=== PATIENT | female | born 1960 | race Caucasian/White ===

== ENCOUNTER 2018-04-14 04:32 | Inpatient (IN) | payer OTHER ==
[~2018-04-14] VITALS: Ht 172.7 cm; Wt 77.2 kg
[~2018-04-14 04:32] MED LIST: NORVASC 10MG10 MG PO
--- NOTE | 2018-04-14 04:57 | ED GI/GU/ABDOMINAL COMPLAINT ---
History of Present Illness General Chief Complaint: Abdominal Pain/Flank Pain Stated Complaint: ABD PAIN Source: patient Exam Limitations: no limitations Vital Signs & Intake/Output Vital Signs & Intake/Output Vital Signs Date Time Temp Pulse Resp B/P B/P Pulse O2 O2 Flow FiO2 Mean Ox Delivery Rate 04/14 0627 74 18 108/74 100 Nasal 2.0L Cannula 04/14 0602 68 18 94/57 100 Nasal 2.0L Cannula 04/14 0547 65 18 86/56 100 Nasal 2.0L Cannula 04/14 0520 64 18 81/53 94 Room Air 04/14 0503 97 Room Air 04/14 0440 96.8 134 20 73/50 97 Room Air Allergies Coded Allergies: NO KNOWN ALLERGIES (04/07/14) Triage Note: PT TO ED 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 BP 73/50 AUTO. SKIN MOIST. PT WRITHING IN WHEEL CHAIR IN TRIAGE. JUST FINISHED MEDS FOR H PYLORI INFECTION Triage Nurses Notes Reviewed? yes Is pt currently ? No HPI: Ms. Hernandez is a 58 y/o F that came to the ED c/o abdominal pain. Pt states pain started this am at approximately 4.30 am; she states it is epigastric with radiation to the RUQ but also to the back. She endorses taking advils, around 25 , while also stating she has had "some drinks". Pain is severe, 8/10, with no modifying factors. On arrival, pt was hypotensive <90/60, drowsy but arousable, answering questions. She is being fluid resuscitated while workup is ongoing including: acetaminophen level, Urinary Tox, CMP, lipase, CT abdomen and pelvis, ETOH level. (Augie Kohler MD,Yariel) ? n (Ger Morales DO) Reconcile Medications Amlodipine Besylate 5 MG TABLET 1 TAB PO DAILY HEART (Reported) Losartan/Hydrochlorothiazide (Losartan-Hctz 100-25 MG Tab) 100 MG-25 MG TABLET 1 TAB PO DAILY HEART (Reported) (Dmitryi Horan MD) Past History Travel History Traveled to [place] past 21 day No Medical History Any Pertinent Medical History? see below for history Cardiovascular: hypertension Surgical History Surgical History: unobtainable Psychosocial History What is your primary language Azeri Tobacco Use: Current Daily Use Daily Tobacco Use Amount/Type: =< 4 Cigarettes daily ETOH Use: occasional use Illicit Drug Use: denies illicit drug use Family History Hx Contributory? No (Augie Kohler MD,Yariel) Review of Systems Review of Systems Constitutional: Reports: see HPI. EENTM: Reports: no symptoms. Respiratory: Reports: no symptoms. Cardiovascular: Reports: no symptoms. GI: Reports: see HPI. Genitourinary: Reports: no symptoms. Musculoskeletal: Reports: no symptoms. Skin: Reports: no symptoms. Neurological/Psychological: Reports: no symptoms. Hematologic/Endocrine: Reports: no symptoms. Immunologic/Allergic: Reports: no symptoms. All Other Systems: Reviewed and Negative (Augie Kohler MD,Yariel) Physical Exam Physical Exam General Appearance: lethargic (though arousable), severe distress Head: atraumatic, normal appearance Neck: normal inspection, supple, full range of motion Respiratory: normal breath sounds, chest non-tender, no respiratory distress, lungs clear Cardiovascular: bradycardia Gastrointestinal: Positive bowel sounds, soft, nondistended, tenderness on palpation of RUQ and epigastric areal. No abdominal guarding, or rebound tenderness. Extremities: normal range of motion Neurologic/Psych: oriented x 3 Core Measures ACS in differential dx? No Sepsis Present: No Sepsis Focused Exam Completed? No (Augie Kohler MD,Yariel) Physical Exam Eyes: Bilateral: normal appearance, PERRL, EOMI, normal inspection. Ears, Nose, Throat, Mouth: hearing grossly normal, moist mucous membrane, dry mucous membranes Peripheral Pulses: 4+ carotid (R), 3+ carotid (L) Back: normal inspection Skin: intact (Dmitriy Horan MD) Progress Differential Diagnosis: pancreatitis, peptic ulcer, perforated viscous Plan of Care: Orders Procedure Date/time Status CBC WITHOUT DIFFERENTIAL 04/15 0600 Active BASIC ELECTROLYTES PLUS BUN&CR 04/15 0600 Active Nothing by Mouth 04/14 L Active LACTIC ACID 04/14 1400 Active LACTIC ACID 04/14 1100 Active EKG 04/14 1000 Active TRC EVALUATION (GEN) 04/14 0913 Active Pathway - chart 04/14 0913 Active House Staff 04/14 0913 Active BLOOD CULTURE 04/14 0913 Active US-LIMITED ABDOMEN 04/14 0816 Active Patient Data 04/14 0813 Active LACTIC ACID 04/14 0750 Complete OXYGEN SETUP (GEN) 04/14 0734 Active Saline Lock 04/14 0734 Active Admit to inpatient 04/14 0734 Active Vital Signs 04/14 0734 Active Activity/Ambulation 04/14 0734 Active Code Status 04/14 0734 Active Add-on Test (ER Only) 04/14 0731 Active URINE LYTES, SPOT 04/14 0710 Active Add-on Test (ER Only) 04/14 0620 Active Add-on Test (ER Only) 04/14 0607 Active URINE DRUGS OF ABUSE 04/14 0504 Active FingerStick- Glucose 04/14 0503 Active ACETOMINOPHEN 04/14 0500 Complete MAGNESIUM 04/14 0500 Complete LIPASE 04/14 0500 Complete LACTIC ACID 04/14 0500 Complete ETHANOL 04/14 0500 Complete TYPE & SCREEN (NOT X-MATCH) 04/14 0500 Complete Intake & Output 04/14 0456 Active URINALYSIS 04/14 0450 Complete COMPREHENSIVE METABOLIC PANEL 04/14 0450 Complete CBC WITHOUT DIFFERENTIAL 04/14 0450 Complete EKG 04/14 0449 Active Lab Add-on Test 04/14 UNK Active VTE Mechanical Prophylaxis 04/14 UNK Active Telemetry/Communication And Outreach Manager 04/14 UNK Active Intake & Output 04/14 UNK Active Hemoccult 04/14 UNK Active CIWA 04/14 UNK Active Current Medications Sig/Eliane Start time Last Medication Dose Stop Time Status Admin Potassium Chloride 20 MEQ ONCE ONE 04/14 0615 CAN 04/14 0616 Laboratory Tests 04/14/18 0807: Lactic Acid 3.2 H 04/14/18 0710: Urinalysis MOD H, Urine Color STRAW, Urine Clarity CLEAR, Urine pH 6.5, Ur Specific Murphy 1.010, Urine Protein 100 H, Urine Ketones NEG, Urine Nitrite NEG, Urine Bilirubin NEG, Urine Urobilinogen 0.2, Ur Leukocyte Esterase NEG, Ur Microscopic SEDIMENT EXAMINED, Urine RBC RARE, Urine WBC 3-5 H, Ur Epithelial Cells FEW, Urine Bacteria RARE H, Urine Hemoglobin TRACE-INTACT, Urine Glucose NEG 04/14/18 0710: Urine Opiates Screen < 100, Methadone Screen < 40, Barbiturate Screen < 60, Ur Phencyclidine Scrn < 6.00, Amphetamines Screen < 100, U Benzodiazepines Scrn < 85, Urine Cocaine Screen < 50, Urine Cannabis Screen < 5.00, Ur Random Creatinine Pending, Ur Random Sodium Pending, Ur Random Potassium Pending, Fraction Sodium Excret Pending 04/14/18 0504: Acetaminophen Cancelled 04/14/18 0500: Lactic Acid 2.8 H 04/14/18 0500: Anion Gap 13, Estimated GFR 42 L, BUN/Creatinine Ratio 9.2, Glucose 158 H, Calcium 8.7, Magnesium 1.9, Total Bilirubin 0.2, AST 64 H, ALT 131 H, Alkaline Phosphatase 60, Total Protein 6.8, Albumin 3.5, Globulin 3.3, Albumin/Globulin Ratio 1.1, Lipase 154, CBC w Diff MAN DIFF ORDERED, RBC 3.07 L, MCV 95.3, MCH 31.6 H, MCHC 33.1, RDW 15.0 H, MPV 7.9, Gran % 39.2 L, Lymphocytes % 44.5, Monocytes % 10.5 H, Eosinophils % 4.8, Basophils % 1.0, Absolute Granulocytes 3.9, Segmented Neutrophils 40 L, Absolute Lymphocytes 4.4 H, Lymphocytes 46, Monocytes 8, Absolute Monocytes 1.0 H, Eosinophils 5, Absolute Eosinophils 0.5, Basophils 1, Absolute Basophils 0.1, Platelet Estimate ADEQUATE, Normocytic RBCs VERIFIED, Normochromic RBCs VERIFIED, Acetaminophen < 10.0 L, Serum Alcohol 168.0 04/14/18 0457: Lipase Cancelled, Serum Alcohol Cancelled Microbiology 04/14 913 BLOOD: Blood Culture - ORD 04/14 913 BLOOD: Blood Culture - ORD This 58 y/o F coming to the ED c/o sudden onset severe abdominal epigastric and RUQ pain radiating to the back, with a history of taking around 25 advil and alcohol now presenting hypotensive to the ED. She is now s/p 5L NS at the time of this note, with SBP increasing from 50s to 90s. CT abdomen and pelvis is pending. Etiologies for her pain are multiple acute intraabdominal pathologies. Her hemodynamic status is being closely monitored by cardiac. BEP did show hypokalemia of 2.8, given 20 mEq KCL bolus, EKG showing junctional escape rhythm. will need further replacement. Initial ED EKG: Junctional escape rhythm (Augie Kohler MD,Yariel) Initial ED EKG: Junctional escape rhythm (bradycardia) Rhythm Strip: sinus bradycardia (Dmitriy Horan MD) Departure Departure Condition: Stable Referrals: Nacho Henning MD (PCP/Family) Departure Forms: Customer Survey General Discharge Information (Augie Kohler MD,Yariel) Departure Disposition: STILL A PATIENT Resident Co-Sign Statement Statement: ED Attending supervision documentation- [X] I saw and evaluated the patient. I have also reviewed all the pertinent lab results and diagnostic results. I agree with the findings and the plan of care as documented in the Resident's documentation. [] I have reviewed the ED Record and agree with the Resident's documentation. [] Additions or exceptions (if any) to the Resident's note and plan are summarized below: [] 04/14/18 5:02 I have seen and examined the patient and agree with the residents finding. She presents stating she has had several drinks and was experencing leg pain due to restless leg syndrome. She states that she took 25 advil to relieve the pain. She was guiac negative on my exam. She has mild epigastric abdominal tenderness. She was significantly hypotensive , multiple fluid boluses were given. She is pending CT scan results. IV potassium.. EKG reveals sinus bradycardia with first-degree AV block. The patient will be signed out to Dr. Horan at 7 am (Ger Morales DO) Departure Clinical Impression Primary Impression: Hypotension Secondary Impressions: Abdominal pain, Alcohol intoxication, Hypokalemia, Lactic acidosis Admission Note Spoke With: Diego Leija MD Documentation of Exam: Documentation of any treatments & extenuating circumstances including Concerns Regarding Discharge (functional status, medication knowledge or non-compliance, living conditions, etc.) that warrant an admission rather than observation: IV fluids nothing by mouth serial lab exam cardiac monitoring serial CIWA medication adjustment. Resident Co-Sign Statement Statement: ED Attending supervision documentation- x I saw and evaluated the patient. I have also reviewed all the pertinent lab results and diagnostic results. I agree with the findings and the plan of care as documented in the Resident's documentation. [] I have reviewed the ED Record and agree with the Resident's documentation. [] Additions or exceptions (if any) to the Resident's note and plan are summarized below: [] (Dmitriy Horan MD) Critical Care Note Critical Care Note Critical Care Time: 30-74 min (40) (Dmitriy Horan MD)
[2018-04-14 05:20] LABS: ABSOLUTE BASOPHIL COUNT 0.1 /CUMM (0.0-0.2); ABSOLUTE EOSINOPHIL COUNT 0.5 /CUMM (0.0-0.7); ABSOLUTE GRANULOCYTE CT 3.9 /CUMM (1.4-6.5); ABSOLUTE LYMPH COUNT 4.4 /CUMM (1.2-3.4); EOSINOPHIL % 4.8 % (0-5); GRANULOCYTE % 39.2 % (42.2-75.2); HEMATOCRIT 29.3 % (37-47); MEAN CORPUSCULAR HGB 31.6 PG (27.0-31.0); MEAN CORPUSCULAR HGB CONC 33.1 G/DL (33.0-37.0); MEAN CORPUSCULAR VOLUME 95.3 FL (81.0-99.0); MEAN PLATELET VOLUME 7.9 FL (7.4-10.4); PLATELET COUNT 375 /CUMM (130-400); RED BLOOD CELL CT 3.07 /CUMM (4.20-5.40); WHITE BLOOD CELL COUNT 9.9 /CUMM (4.8-10.8)
--- NOTE | 2018-04-14 07:05 | CT SCAN REPORT ---
EXAMINATION: CT ABDOMEN AND PELVIS WITH CONTRAST CLINICAL INFORMATION: Severe sudden onset right upper quadrant pain COMPARISON: None TECHNIQUE: Multidetector volumetric imaging was performed of the abdomen and pelvis following IV administration of 95 mL of Optiray 320 intravenous contrast. Sagittal and coronal reformatted images were obtained on the technologist's workstation. DLP: 509 mGy-cm FINDINGS: LUNG BASES: The visualized lung bases are unremarkable. LIVER, GALLBLADDER, AND BILIARY TREE: The liver is normal in size, shape, and attenuation. No focal hepatic lesion or biliary ductal dilatation is present. The gallbladder is distended. No gallbladder wall thickening or pericholecystic fluid. No radiopaque gallstones are seen. The common bile duct is normal in caliber. PANCREAS: Unremarkable. SPLEEN: Unremarkable. ADRENAL GLANDS: Unremarkable. KIDNEYS AND URETERS: The kidneys are normal in size, shape, and attenuation. No hydronephrosis, hydroureter, or calculi seen. No perinephric stranding. BLADDER: Unremarkable. GASTROINTESTINAL TRACT: Small hiatal hernia. The stomach is otherwise unremarkable. The small bowel is normal in caliber. There is no obstruction. Normal appendix. Radiopaque density at the hepatic flexure of the colon likely an ingested pill. No colonic wall thickening or inflammatory change. Diverticulosis of the sigmoid colon without diverticulitis. ABDOMINAL WALL: No significant hernia is appreciated. LYMPH NODES: There is no lymphadenopathy. Minimal stranding noted in the mesenteric fat, most notably superiorly adjacent to the lesser curvature of the stomach. This is nonspecific. VASCULAR: Normal caliber aorta with moderate atherosclerotic calcifications. PELVIC VISCERA: The uterus and adnexa are unremarkable. OSSEOUS STRUCTURES: No acute or suspicious osseous abnormality. IMPRESSION: The gallbladder is distended, although no gallstones are seen. No definite inflammatory changes of the gallbladder. Consider further evaluation with right upper quadrant ultrasound. Mild stranded appearance of the mesentery is nonspecific and may be of no clinical significance.
[2018-04-14] MEDS ORDERED: AMLODIPINE BESYL5 M1 PO (08:10)
[2018-04-14] MEDS ORDERED: LOSARTAN-HCTZ1 EAC2 PO (08:10)
--- NOTE | 2018-04-14 08:28 | History & Physical ---
LyudmilaAlexideni 04/14/18 0828: General Information and HPI Exam Limitations: no limitations History of Present Illness: Ms Hernandez is a 58 year old woman w/ a PMHx of HTN, 20 pk yr smoking h/o, frequent NSAID use for the tx of RLS, no FHx of colon CA or IBD, history of colon polyps, last colonoscopy 1.5 mm and 2 mm sessile colonic polyps, recent tx for H.pylori came to the hospital with a chief concern of epigastric pain, radiating to the back. Reported to have taken approximately 25 tablets of ibuprofen, overnight. Also reported to have had a few alcoholic drinks. She was known to be in her usual state of health until a one month ago, when she noticed to have intermittent painless hematochezia and melena. She underwent upper endoscopy and colonoscopy, which revealed 2 sessile polyps in the colon, and pathological evidence of mild acute and chronic gastritis, and staining was negative for H pylori, and eosinophils. She was relatively feeling well, and reported decreased po intake in the last two days. A few hours prior to presentation, she reported acute abdominal pain, associated with nausea and one episode of vomiting. Pain 8/10, radiating to the back, relieved upon getting anti-emetics. Reported chills but no fever. No cough. Did not have any recent episodes of melena or hematochezia in the last few weeks. No lightheadedness, dizziness. Reported occasional alcohol use( thrice weekly upto 2-3 drinks of whisky), but not daily. Continues to smoke. No pedal edema, dysuria. Takes amlodipine, and losartan/hctz daily. Allergies/Medications Allergies: Coded Allergies: NO KNOWN ALLERGIES (04/07/14) Home Med list Amlodipine Besylate 5 MG TABLET 1 TAB PO DAILY HEART (Reported) Losartan/Hydrochlorothiazide (Losartan-Hctz 100-25 MG Tab) 100 MG-25 MG TABLET 1 TAB PO DAILY HEART (Reported) Compliance With Home Meds: UNKNOWN Past History Travel History Traveled to [place] past 21 day No Medical History Cardiovascular: hypertension Surgical History Surgical History: unobtainable Past Family/Social History Family History Relations & Conditions if any Relation not specified for: *No pertinent family history Psychosocial History ETOH Use: occasional use Illicit Drug Use: denies illicit drug use Functional Ability ADLs Independent: dressing, eating, toileting, bathing. Ambulation: independent IADLs Independent: shopping, housework, finances, food prep, telephone, transportation , medication admin. Review of Systems Review of Systems Constitutional: Reports: chills. EENTM: Denies: visual changes. Cardiovascular: Denies: chest pain, palpitations, peripheral edema, syncope. Respiratory: Denies: cough, short of breath. GI: Reports: nausea. Denies: abdominal pain, melena, bloody stool. Genitourinary: Denies: frequency, nocturia. Musculoskeletal: Denies: back pain, joint pain, muscle pain. Skin: Denies: change in skin color. Neurological/Psychological: Denies: numbness, paresthesia, tingling, tremors. Hematologic/Endocrine: Denies: bruising. Immunologic/Allergic: Denies: see HPI. Exam & Diagnostic Data Last 24 Hrs of Vital Signs/I&O Vital Signs Date Time Temp Pulse Resp B/P B/P Pulse O2 O2 Flow FiO2 Mean Ox Delivery Rate 04/14 0942 98.2 82 18 100/64 96 Room Air Room Air 04/14 0627 74 18 108/74 100 Nasal 2.0L Cannula 04/14 0602 68 18 94/57 100 Nasal 2.0L Cannula 04/14 0547 65 18 86/56 100 Nasal 2.0L Cannula 04/14 0520 64 18 81/53 94 Room Air 04/14 0503 97 Room Air 04/14 0440 96.8 134 20 73/50 97 Room Air Intake & Output 04/14 1600 04/14 0800 04/14 0000 Intake Total Output Total Balance Patient 165 lb Weight Weight Reported by Patient Measurement Method Physical Exam General Appearance Alert, Oriented X3, Cooperative, No Acute Distress Skin No Rashes, No Breakdown, mutiple erythematous lesions, s/o ? telangiectasias Skin Temp/Moisture Exam: Cool/Dry Sepsis Skin Exam (color): Normal for Ethnicity HEENT Atraumatic, PERRLA, EOMI, Mucous Membr. moist/pink Neck Supple, No JVD, No thryomegaly, +2 Carotid Pulse wo Bruit Lymphatic Axillary nl, Cervical nl Cardiovascular Regular Rate, Normal S1, Normal S2, No Murmurs Lungs Clear to Auscultation, Normal Air Movement Abdomen Normal Bowel Sounds, Soft, No Hepatospenomegaly, No Masses, tenderness in RUQ, murphys negative Epigastric tenderness Neurological Normal Speech, Strength at 5/5 X4 Ext, Normal Tone, Sensation Intact, Cranial Nerves 3-12 NL, Reflexes 2+ Extremities No Cyanosis, No Edema, Normal Pulses, No Tenderness/Swelling Vascular Pulses Symmetrical Sepsis Peripheral Pulse Location: Dorsalis Pedis Sepsis Peripheral Pulse Exam: Normal Sepsis Cap Refill Exam: <2 Sec Body Front and Back (Adult) 1) tenderness in RUQ, epigastric Last 24 Hrs of Labs/Justo: Laboratory Tests 04/14/18 0807: Lactic Acid 3.2 H 04/14/18 0710: Urinalysis MOD H, Urine Color STRAW, Urine Clarity CLEAR, Urine pH 6.5, Ur Specific [place] 1.010, Urine Protein 100 H, Urine Ketones NEG, Urine Nitrite NEG, Urine Bilirubin NEG, Urine Urobilinogen 0.2, Ur Leukocyte Esterase NEG, Ur Microscopic SEDIMENT EXAMINED, Urine RBC RARE, Urine WBC 3-5 H, Ur Epithelial Cells FEW, Urine Bacteria RARE H, Urine Hemoglobin TRACE-INTACT, Urine Glucose NEG 04/14/18 0710: Urine Opiates Screen < 100, Methadone Screen < 40, Barbiturate Screen < 60, Ur Phencyclidine Scrn < 6.00, Amphetamines Screen < 100, U Benzodiazepines Scrn < 85, Urine Cocaine Screen < 50, Urine Cannabis Screen < 5.00, Ur Random Creatinine Pending, Ur Random Sodium Pending, Ur Random Potassium Pending, Fraction Sodium Excret Pending 04/14/18 0504: Acetaminophen Cancelled 04/14/18 0500: Lactic Acid 2.8 H 04/14/18 0500: Anion Gap 13, Estimated GFR 42 L, BUN/Creatinine Ratio 9.2, Glucose 158 H, Calcium 8.7, Magnesium 1.9, Iron 14 L, TIBC 452, Ferritin Pending, Total Bilirubin 0.2, AST 64 H, ALT 131 H, Alkaline Phosphatase 60, Troponin I Pending, Total Protein 6.8, Albumin 3.5, Globulin 3.3, Albumin/Globulin Ratio 1.1, Lipase 154, TSH &T3 &Free T4 Intrp Pending, CBC w Diff MAN DIFF ORDERED, RBC 3.07 L, MCV 95.3, MCH 31.6 H, MCHC 33.1, RDW 15.0 H, MPV 7.9, Gran % 39.2 L, Lymphocytes % 44.5, Monocytes % 10.5 H, Eosinophils % 4.8, Basophils % 1.0, Absolute Granulocytes 3.9, Segmented Neutrophils 40 L, Absolute Lymphocytes 4.4 H, Lymphocytes 46, Monocytes 8, Absolute Monocytes 1.0 H, Eosinophils 5, Absolute Eosinophils 0.5, Basophils 1, Absolute Basophils 0.1, Platelet Estimate ADEQUATE, Normocytic RBCs VERIFIED, Normochromic RBCs VERIFIED, Acetaminophen < 10.0 L, Serum Alcohol 168.0 04/14/18 0457: Lipase Cancelled, Serum Alcohol Cancelled Microbiology 04/14 913 BLOOD: Blood Culture - ORD 04/14 913 BLOOD: Blood Culture - ORD Diagnostic Data EKG Results NSR, sagging ST segments Assessment/Plan Assessment: Ms Hernandez is a 58 year old woman w/ a PMHx of HTN, 20 pk yr smoking h/o, frequent NSAID use, history of colon polyps, without any FHx of colon CA or IBD, last colonoscopy 1.5 mm and 2 mm sessile colonic polyps, recent tx for H.pylori came to the hospital with a chief concern of epigastric pain, radiating to the back likely secondary to gastritis, cholecystitis. At the time of admission-temperature 96.8, pulse rate 134, respiration 20, blood pressure 73/50--108/74 (improved after fluid resuscitation), 94% on room air. She received 5 L of normal saline. EKG revealed normal sinus rhythm, sagging ST segments. Pertinent lab findings: W BC 9.9 (39% granulocytes), hemoglobin 9.7 (last hemoglobin 14.1-03/04/2018) Sodium 139, potassium 2.8, chloride 108, bicarbonate 19 (mild metabolic acidosis ), anion gap 13 BUN 12, creatinine 1.3 (RUTH, baseline 0.9), magnesium 1.9. Lactic acid 2.8-->3.2 Urine toxicology screen-negative except serum alcohol 168. Urine protein greater than 100, WBC 3-5. Glucose 158. Liver chemistry-AST 64, ALT 131, alkaline phosphatase 60, total bilirubin 0.2, albumin 3.5. INR- Lipase 154 CT scan abdomen- The gallbladder is distended, although no gallstones are seen. No definite inflammatory changes of the gallbladder. Consider further evaluation with right upper quadrant ultrasound. Mild stranded appearance of the mesentery is nonspecific and may be of no clinical significance. Problem list: 1. Sepsis, rule out any gall bladder infection 2. Hypokalemia ? secondary to vomiting, HCTZ use 3. h/o hypertension 4. Hypotension 5. RUTH likely dehydration, ATN, NSAID use. 6. Lactic acidosis likely from alcohol use 7. Anemia, likely acute blood loss anemia Etiology in this case of hypotension w/ no clear e/o infection but meeting > 2 SIRS criteria is likely infection until proven otherwise. She currently has lactic acidosis, and also has hypotension which needs to followed closely, and treated w/ Amp-Sulb for now. There is an e/o of gall bladder dilatation, w/o any e/o of gall stone, or cholecystitis likely an initial stage of infection which needs to be investigated actively w/ serial abdominal exams and HIDA scan. Other possibilities- hypotension from partial adrenal insufficiency, GI bleed. DEEP negative so far, which needs to be kept in mind to make sure that she is not bleeding. RUTH is likely secondary to dehydration, and persistent lactic acidosis makes me think that she continues to have alcohol ketoacidosis which should have been corrected by now, but there is a possibility of her developing acute mesenteric ischemia given her hypotension. She received contrast once this am, and would need to get CTA abdomen to r/o any ischemia if lactic acid is persisently elevated. Mild elevation in liver chemistries with normal bilirubin, alk phos is likely liver injury which needs to monitored closely with repeat LFTs in the am. Plan- 1. Admit the pt to telemetry. 2. Check one more EKG and troponins given epigastric pain. 3. Check RUQ US to r/o any infection. 4. Follow lactate 5. Replete electrolytes 6. Check TSHR 7. Repeat K every 6hrs until normalization 8. Unasyn 3mg q6h pending culture results. DC if no s/s of infection. 9. Serial abdominal exams. 10. CIWA. Consider ativan if she has any tremors. 11. Check LFTs in the am. 12. Check am cortisol. If low would tx w/ HC 100mg BID for persistent hypotension. 13. Check c diff, if she develops any diarrhea. 14. Check Urine lytes, but please note that this data could be uniterpretable given fluids being given in the ER. 15. Check INR 16. Check HbA1c. 17. Consider CTA abdomen to r/o any ischemia, if lactic acid is elevated. 18. Continue IV PPIs, and discuss w/ GI if EGD was planned 19. Hold losartan, hctz, and amlodipine. 20. Avoid NSAIDs. Follow Protein/creatinine ratio to make sure that she doesnt have nephrotic range proteinurea. DVT PPx- SC heparin GI Ppx- Protonix Med rec- hold losartan, hctz, amlodipine Discussed over the phone w/ Dr. Rene. We plan to get HIDA scan, and if the results are positive would alert surgery stat. If the results are negative, would inform Dr. Rene as soon as possible. While we were waiting for HIDA scan to be done, it was notified that the machine that does the HIDA scan is not working; requested Surgical service to evaluate the pt as soon as possible to see if this patient needs any surgery or possible transfer to a higher level of care. Spoke to the surgical service, and the attendent mentioned that Dr. Casey is aware of the pt. As Ranked By This Provider Problem List: 1. Hypertension 2. Abdominal pain 3. Hypokalemia 4. Hypotension 5. Lactic acidosis 6. Alcohol intoxication Core Measures/Misc (05/19) Acute Coronary Syndrome ACS Diagnosis: No Congestive Heart Failure Congestive Heart Failure Diagnosis No Cerebrovascular Accident CVA/TIA Diagnosis: No VTE (View Protocol) VTE Risk Factors Acute Medical Illness No Mechanical VTE Prophylaxis d/t N/A MechProphylax Ordered No VTE Pharm Prophylaxis d/t NA PharmProphylax ordered Sepsis (View protocol) Sepsis Present: Yes If YES complete Sepsis Event Note If YES complete Sepsis Event Note ED Sepsis Exam Date of Focused Sepsis Exam: 04/14/18 Time of Focused Sepsis Exam: 829 Sepsis Cardiac Exam: Regular Rate/Rhythm Sepsis Resp Exam: none Sepsis Cap Refill Exam: <2 Sec Sepsis Peripheral Pulse Exam: Normal Sepsis Peripheral Pulse Location: Dorsalis Pedis Sepsis Skin Color Exam: Normal for Ethnicity Skin Temp/Moisture Exam: Cool/Dry Meggan Quan MD 04/15/18 1107: Core Measures/Misc (05/19) Sepsis (View protocol) If YES complete Sepsis Event Note If YES complete Sepsis Event Note Attending MD Review Statement Attending Statement Attending MD Statement: examined this patient, discuss w/resident/PA/CHECK OUT CLERK, agreed w/resident/PA/CHECK OUT CLERK, reviewed EMR data (avail) Attending Assessment/Plan: 58F PMH HTN, 20 pk yr smoking h/o, frequent NSAID use, history of colon polyps, without any FHx of colon CA or IBD, last colonoscopy 1.5 mm and 2 mm sessile colonic polyps, recent tx for H.pylori presenting with RUQ and epigastric pain, severe, radiates to back, no inciting event. She had vomited twice and feels nausea, no diarrhea. Temp was 96.8 on admission. Normal WBC, Hgb 9.6 down from 14 six weeks ago. Denies dark or bloody stools. Exam reveals tender RUQ. EKG shows sinus bradycardia. 1. RUQ pain 2. Hypokalemia 3. Hypomagnesemia 4. Anemia Plan - Admit to telemetry - RUQ ultrasound - HIDA scan if negative - Surgery and GI consults - Start Unasyn - Cultures - Replete potassium and magnesium - Continue home medications - DVT PPx
--- NOTE | 2018-04-14 10:09 | ULTRASOUND REPORT ---
EXAMINATION: US ABDOMEN LIMITED CLINICAL INFORMATION: Rule out cholecystitis. Rule out common bile dilatation. COMPARISON: CT abdomen and pelvis 04/14/2018. TECHNIQUE: Real-time imaging of the right upper quadrant abdominal viscera. FINDINGS: PANCREAS: Normal. LIVER: Mildly echogenic liver consistent fatty infiltration. There is focal fatty sparing adjacent to the gallbladder. No discrete mass lesion. No intrahepatic ductal dilatation. GALLBLADDER: The gallbladder is dilated similar to recent CT scan. The gallbladder wall is not thickened. There is no pericholecystic fluid, biliary sludge, or cholelithiasis. The technologist reports that the patient was tender during the evaluation. COMMON BILE DUCT: Normal in caliber measuring 0.5 cm in diameter. RIGHT KIDNEY: Normal. No hydronephrosis. No renal calculi or focal parenchymal lesions. The kidney measures 12.8 cm in maximum dimension. FREE FLUID: None. IMPRESSION: Dilated gallbladder similar to recent CT scan. No gallbladder wall thickening, pericholecystic fluid, or cholelithiasis. The patient was tender over the gallbladder during the examination. No intrahepatic or extrahepatic biliary ductal dilatation. Hepatic steatosis.
--- NOTE | 2018-04-14 11:53 | RADIOLOGY REPORT ---
EXAMINATION: XR ABDOMEN MULTIPLE VIEWS CLINICAL INDICATION: Persistent right upper quadrant pain. Rule out any perforation. COMPARISON: CT scan of the abdomen and pelvis dated 04/14/2018. TECHNIQUE: 2 views of the abdomen performed on 3 images. FINDINGS: Normal bowel gas pattern. No evidence of obstruction or perforation. Dense right upper quadrant tubular 1.3 x 0.2 cm density is seen, shown to represent ingested dense material in the hepatic flexure of the colon, perhaps remnants of an ingested calcium tablet. Clinical correlation requested. Bilateral nephrograms are noted and there is contrast seen within the bladder from recent contrast enhanced CT scan. Bony structures are unremarkable. IMPRESSION: Ingested focal dense material seen in the right upper quadrant, shown on CT scan to be within the hepatic flexure. Otherwise unremarkable study.
[2018-04-14 14:58] VITALS: BP 118/62
--- NOTE | 2018-04-14 15:12 | NUCLEAR MEDICINE REPORT ---
EXAMINATION: BILIARY TRACT IMAGING STUDY WITH CCK CLINICAL INFORMATION: Dilated gallbladder suspected acute cholecystitis.. COMPARISON: No previous biliary scan is available for comparison. Abdominal ultrasound and CT scan of the abdomen, both dated 04/14/2018, the same date as this biliary scan are available for comparison.. EXAMINATION: TECHNIQUE: Serial gamma scintillation camera images were obtained over the abdomen for a total observation period of 110 minutes following the intravenous administration of 5.4 mCi Tc-99m Choletec. FINDINGS: There is good concentration of activity in the liver. Biliary activity is visualized by 5 minutes post injection. The gallbladder and small bowel activity are well visualized by 10 minutes. At 45 minutes post Mebrofenin injection, 8 ounces of Ensure-plus Brand was administered orally and an additional 60 minutes of images were obtained. There is only minimal gallbladder emptying following ingestion of the fatty meal. At the end of the study abnormal persistent gallbladder activity is present but there is good clearance of activity from the liver in good visualization of diffuse small bowel activity. The calculated gallbladder ejection fraction is 14.7% (normal gallbladder ejection fraction using Ensure supplement orally is greater than 33%). IMPRESSION: 1. Visualization of the gallbladder is evidence of a patent cystic duct and strong evidence against the diagnosis of acute cholecystitis. The common bile duct is patent. Liver function appears normal. 2. Poor gallbladder emptying and a low gallbladder ejection fraction are evidence of impaired gallbladder contractility and most likely due to chronic cholecystitis.
--- NOTE | 2018-04-14 15:33 | Cons- General Surgery ---
General Information and HPI Consulting Request Date of Consult: 04/14/18 Requested By: Meggan Quan MD Reason for Consult: RUQ abdominal pain History of Present Illness: Patient is a 58-year-old relatively healthy woman who presents to the emergency room with severe epigastric abdominal pain. She stated the pain awakened her from sleep and was unrelenting. There was one episode of vomiting while in the ER but none since. She has no prior episodes of pain. Patient admits to ingesting "20 pills" of ibuprofen for treatment of her restless leg syndrome last evening. No ill contacts. She does admit that her had acute pancreatitis last week. Allergies/Medications Allergies: Coded Allergies: NO KNOWN ALLERGIES (04/07/14) Home Med List: Amlodipine Besylate 5 MG TABLET 1 TAB PO DAILY HEART (Reported) Losartan/Hydrochlorothiazide (Losartan-Hctz 100-25 MG Tab) 100 MG-25 MG TABLET 1 TAB PO DAILY HEART (Reported) Current Medications: Current Medications Sig/Eliane Start time Last Medication Dose Route Stop Time Status Admin Acetaminophen 650 MG Q8P PRN 04/14 1000 AC PO Ampicillin Sodium/ 0 .STK-MED ONE 04/14 1006 DC Sulbactam Sodium .ROUTE Ampicillin Sodium/ 3,000 MG Q6H 04/14 1000 AC 04/14 Sulbactam Sodium IV 1031 Sodium Chloride 100 ML Heparin Sodium 5,000 UNIT Q8 04/14 1400 AC 04/14 (Porcine) SC 1408 Metoclopramide HCl 10 MG ONCE ONE 04/14 0630 DC 04/14 IV 04/14 0631 0628 Metoclopramide HCl 0 .STK-MED ONE 04/14 0624 DC .ROUTE Morphine Sulfate 2 MG Q8P PRN 04/14 1000 AC IV Ondansetron HCl 4 MG Q6P PRN 04/14 1300 AC IV Ondansetron HCl 4 MG Q6P PRN 04/14 0930 DC IV Ondansetron HCl 0 .STK-MED ONE 04/14 0751 DC .ROUTE Ondansetron HCl 4 MG ONCE ONE 04/14 0745 DC 04/14 IV 04/14 0746 0810 Ondansetron HCl 0 .STK-MED ONE 04/14 0528 DC .ROUTE Ondansetron HCl 4 MG ONCE ONE 04/14 0515 DC 04/14 IV 04/14 0516 0529 Pantoprazole Sodium 0 .STK-MED ONE 04/14 0950 DC IV Pantoprazole Sodium 40 MG DAILY 04/14 0925 AC 04/14 IV 0951 Potassium Chloride 10 MEQ DAILY 04/14 1519 AC PO Potassium Chloride 10 MEQ ONCE ONE 04/14 1115 DC IV 04/14 1116 Potassium Chloride 10 MEQ ONCE ONE 04/14 1115 DC 08/ IV 04/14 1116 1404 Potassium Chloride 10 MEQ ONCE ONE 04/14 0645 DC 08 IV 04/14 0646 0810 Potassium Chloride 10 MEQ ONCE ONE 04/14 0630 DC 08/ IV 04/14 0631 0646 Potassium Chloride 20 MEQ ONCE ONE 04/14 0615 CAN IV 04/14 0616 Sodium Chloride 1,000 ML BOLUS ONE 04/14 1015 DC 04/14 IV 04/14 1214 1031 Sodium Chloride 1,000 ML BOLUS ONE 04/14 0615 DC 04/14 IV 04/14 0714 0615 Sodium Chloride 1,000 ML BOLUS ONE 04/14 0615 DC 04/14 IV 04/14 0714 0615 Sodium Chloride 1,000 ML BOLUS ONE 04/14 0530 DC 08/ IV 04/14 0629 0525 Sodium Chloride 1,000 ML BOLUS ONE 04/14 0500 DC 08 IV 04/14 0559 0457 Sodium Chloride 1,000 ML BOLUS ONE 04/14 0500 DC 04/14 IV 04/14 0559 0502 Tramadol HCl 50 MG Q8P PRN 04/14 1000 AC PO Past History Medical History Blood Transfusion Hx: No Cardiovascular: hypertension Musculoskeletal: Restless leg syndrome Surgical History Pertinent Surgical History: Family History Relations & Conditions If Any: Relation not specified for: *No pertinent family history Psychosocial History Where Do You Live? Home Smoking Status: Current Everyday Smoker ETOH Use: occasional use Illicit Drug Use: denies illicit drug use Functional Ability ADLs Independent: dressing, eating, toileting, bathing. Ambulation: independent IADLs Independent: shopping, housework, finances, food prep, telephone, transportation , medication admin. Review of Systems Review of Systems: abdominal pain per hpi. vomiting. No cp or dyspnea. remainder 12 points neg. Exam & Diagnostic Data Vital Signs and I&O Vital Signs Date Time Temp Pulse Resp B/P B/P Pulse O2 O2 Flow FiO2 Mean Ox Delivery Rate 04/14 1458 98.2 94 18 118/62 98 Room Air 04/14 0942 98.2 82 18 100/64 96 Room Air Room Air 04/14 0627 74 18 108/74 100 Nasal 2.0L Cannula 04/14 0602 68 18 94/57 100 Nasal 2.0L Cannula 04/14 0547 65 18 86/56 100 Nasal 2.0L Cannula 04/14 0520 64 18 81/53 94 Room Air 04/14 0503 97 Room Air 04/14 0440 96.8 134 20 73/50 97 Room Air Intake & Output 04/14 1600 04/14 0800 04/14 0000 04/13 1600 04/13 0804/13 0000 Intake Total 500 Output Total 1900 900 Balance -1400 -900 Intake, IV 500 Number 1 Bowel Movements Output, Urine 1900 900 Patient 183 lb 165 lb Weight Weight Bed scale Reported by Patient Measurement Method Physical Exam: gen: looks well. overwieght. nad. HEENT: Anicteric PERRLA EOMI Chest: Nontender, normal respiratory effort and excursion Abdomen: Soft, mild tenderness right upper quadrant without guarding. Negative Schmitt sign. No hernia no mass Skin: Excessive tanning no tattoos no rash Last 24 Hours of Labs: Laboratory Tests 04/14 04/14 04/14 1435 1020 0807 Chemistry Potassium (3.5 - 5.1 mmol/L) 3.1 L Lactic Acid (0.7 - 2.1 mmol/L) Pending 3.2 H Troponin I Pending Coagulation PT Pending INR Pending Hematology CBC w Diff Pending WBC Pending RBC Pending Hgb Pending Hct Pending MCV Pending MCH Pending MCHC Pending RDW Pending Plt Count Pending MPV Pending 04/14 04/14 04/14 0710 0710 0504 Toxicology Urine Opiates Screen (>2000 NG/ML) < 100 Methadone Screen (>300 NG/ML) < 40 Acetaminophen Cancelled Barbiturate Screen (>200 NG/ML) < 60 Ur Phencyclidine Scrn (>25 NG/ML) < 6.00 Amphetamines Screen (>1000 NG/ML) < 100 U Benzodiazepines Scrn (>200 NG/ML) < 85 Urine Cocaine Screen (>300 NG/ML) < 50 Urine Cannabis Screen (>50 NG/ML) < 5.00 Urines Urinalysis MOD H Urine Color (YEL,AMB,STR) STRAW Urine Clarity (CLEAR) CLEAR Urine pH (5.0 - 8.0) 6.5 Ur Specific [place] (1.001 - 1.035) 1.010 Urine Protein (NEG,<30 MG/DL) 100 H Urine Ketones (NEG) NEG Urine Nitrite (NEG) NEG Urine Bilirubin (NEG) NEG Urine Urobilinogen (0.1 - 1.0 EU/dl) 0.2 Ur Leukocyte Esterase (NEG) NEG Ur Microscopic SEDIMENT EXAMINED Urine RBC (0 - 5 /HPF) RARE Urine WBC (0 - 2 /HPF) 3-5 H Ur Epithelial Cells (NONE,FEW) FEW Urine Bacteria (NEG/NONE) RARE H Urine Hemoglobin (NEG) TRACE-INTACT Ur Random Creatinine (mg/dL) 9.1 U Random Total Protein (0 - 12 mg/dL) 69 H Ur Random Sodium (30 - 90 mmol/L) 121 H Ur Random Potassium (mmol/L) 17.6 Protein/Creatinin Ratio (< 0.2) 7.5 H Fraction Sodium Excret (<1% %) 12.4 H Urine Glucose (N MG/DL) NEG 04/14 04/14 0500 0500 Chemistry Sodium (137 - 145 mmol/L) 139 Potassium (3.5 - 5.1 mmol/L) 2.8 *L Chloride (98 - 107 mmol/L) 108 H Carbon Dioxide (22 - 30 mmol/L) 19 L Anion Gap (5 - 16) 13 BUN (7 - 17 mg/dL) 12 Creatinine (0.5 - 1.0 mg/dL) 1.3 H Estimated GFR (>60 ml/min) 42 L BUN/Creatinine Ratio (7 - 25 %) 9.2 Glucose (65 - 99 mg/dL) 158 H Hemoglobin A1c (4.2 - 5.8 %) 5.4 Serum Osmolality (285 - 295 MOSM/KG) 338 H Lactic Acid (0.7 - 2.1 mmol/L) 2.8 H Calcium (8.4 - 10.2 mg/dL) 8.7 Magnesium (1.6 - 2.3 mg/dL) 1.9 Iron (37 - 170 ug/dL) 14 L TIBC (265 - 497 ug/dL) 452 Ferritin (11.1 - 264 ng/mL) 16.8 Total Bilirubin (0.2 - 1.3 mg/dL) 0.2 AST (14 - 36 U/L) 64 H ALT (9 - 52 U/L) 131 H Alkaline Phosphatase (<127 U/L) 60 Troponin I (< 0.11 ng/ml) < 0.01 Total Protein (6.3 - 8.2 g/dL) 6.8 Albumin (3.5 - 5.0 g/dL) 3.5 Globulin (1.9 - 4.2 gm/dL) 3.3 Albumin/Globulin Ratio (1.1 - 2.2 %) 1.1 Lipase (23 - 300 U/L) 154 TSH &T3 &Free T4 Intrp (0.270 - 4.20 uIU/mL) 3.080 Cortisol AM Sample (4.46 - 22.7 ug/dL) 33.2 H Hematology CBC w Diff MAN DIFF ORDERED WBC (4.8 - 10.8 /CUMM) 9.9 RBC (4.20 - 5.40 /CUMM) 3.07 L Hgb (12.0 - 16.0 G/DL) 9.7 L Hct (37 - 47 %) 29.3 L MCV (81.0 - 99.0 FL) 95.3 MCH (27.0 - 31.0 PG) 31.6 H MCHC (33.0 - 37.0 G/DL) 33.1 RDW (11.5 - 14.5 %) 15.0 H Plt Count (130 - 400 /CUMM) 375 MPV (7.4 - 10.4 FL) 7.9 Gran % (42.2 - 75.2 %) 39.2 L Lymphocytes % (20.5 - 51.1 %) 44.5 Monocytes % (1.7 - 9.3 %) 10.5 H Eosinophils % (0 - 5 %) 4.8 Basophils % (0.0 - 2.0 %) 1.0 Absolute Granulocytes (1.4 - 6.5 /CUMM) 3.9 Segmented Neutrophils (42.2 - 75.2 %) 40 L Absolute Lymphocytes (1.2 - 3.4 /CUMM) 4.4 H Lymphocytes (20.5 - 51.1 %) 46 Monocytes (1.7 - 9.3 %) 8 Absolute Monocytes (0.10 - 0.60 /CUMM) 1.0 H Eosinophils (0 - 5.0 %) 5 Absolute Eosinophils (0.0 - 0.7 /CUMM) 0.5 Basophils (0.0 - 2.0 %) 1 Absolute Basophils (0.0 - 0.2 /CUMM) 0.1 Platelet Estimate (ADEQUATE) ADEQUATE Normocytic RBCs VERIFIED Normochromic RBCs VERIFIED Toxicology Acetaminophen (10.0 - 30.0 ug/mL) < 10.0 L Serum Alcohol (<10 MG/DL) 168.0 04/14 0457 Chemistry Lipase Cancelled Toxicology Serum Alcohol Cancelled Imaging Results: CT scan of the abdomen and pelvis was personally reviewed. Findings show ingested foreign material in the hepatic flexure of the colon. There is no pericolonic inflammatory changes. There is mild distention of the gallbladder without inflammatory changes. Right upper quadrant ultrasound shows no evidence of gallstones. No pericholecystic fluid. No gallbladder wall thickening Assessment/Plan Assessment/Plan Right upper quadrant abdominal pain. Patient's symptoms are not related to gallbladder disease. Although there is mild distention of the gallbladder on ultrasound and CT, there are no inflammatory changes to indicate acute cholecystitis. Furthermore there are no gallstones by CT or ultrasound. In the interim, a HIDA scan has been ordered. The results are available but not formally read by the radiologist. Per my interpretation, there is prompt filling of the gallbladder, indicative of patency of the cystic duct. As such she does not have acute cholecystitis to explain her pain. No intervention regarding her gallbladder should be undertaken. There is some metallic appearing foreign material in her colon which has not caused inflammatory changes of the colon. I do not recommend any further intervention regarding it. The etiology of her pain is likely related to over ingestion of ibuprofen. She should follow-up with her primary care physician to seek alternative treatment for her restless leg syndrome Copies To: Mialdy ALMAZAN,Nacho Consult Acknowledgment - Thank you for your consult request.
[2018-04-14 15:54] LABS: ABSOLUTE BASOPHIL COUNT 0 /CUMM (0.0-0.2); ABSOLUTE EOSINOPHIL COUNT 0 /CUMM (0.0-0.7); ABSOLUTE GRANULOCYTE CT 5.8 /CUMM (1.4-6.5); ABSOLUTE LYMPH COUNT 0.9 /CUMM (1.2-3.4); ABSOLUTE MONOCYTE COUNT 0.5 /CUMM (0.10-0.60); BASOPHIL % 0.6 % (0.0-2.0); EOSINOPHIL % 0.3 % (0-5); HEMATOCRIT 27.9 % (37-47); MEAN CORPUSCULAR HGB 31.6 PG (27.0-31.0); MEAN CORPUSCULAR HGB CONC 33.3 G/DL (33.0-37.0); MEAN CORPUSCULAR VOLUME 95.1 FL (81.0-99.0); MEAN PLATELET VOLUME 9.3 FL (7.4-10.4); PLATELET COUNT 279 /CUMM (130-400); RBC DISTRIBUTION WIDTH 15.1 % (11.5-14.5); RED BLOOD CELL CT 2.94 /CUMM (4.20-5.40); WHITE BLOOD CELL COUNT 7.2 /CUMM (4.8-10.8)
[2018-04-14 16:09] LABS: GRANULOCYTE % 80.1 % (42.2-75.2)
[2018-04-14 16:15] LABS: PT 12.7 SEC (9.4-12.5)
[2018-04-14 22:07] VITALS: BP 114/66
[2018-04-15 06:58] VITALS: BP 118/68
[2018-04-15 07:29] LABS: ABSOLUTE BASOPHIL COUNT 0 /CUMM (0.0-0.2); ABSOLUTE EOSINOPHIL COUNT 0.2 /CUMM (0.0-0.7); ABSOLUTE GRANULOCYTE CT 3.4 /CUMM (1.4-6.5); ABSOLUTE LYMPH COUNT 1.1 /CUMM (1.2-3.4); ABSOLUTE MONOCYTE COUNT 0.4 /CUMM (0.10-0.60); BASOPHIL % 0.5 % (0.0-2.0); EOSINOPHIL % 3.4 % (0-5); GRANULOCYTE % 66.4 % (42.2-75.2); HEMATOCRIT 24.3 % (37-47); MEAN CORPUSCULAR HGB 31.7 PG (27.0-31.0); MEAN CORPUSCULAR HGB CONC 34.1 G/DL (33.0-37.0); MEAN CORPUSCULAR VOLUME 93.1 FL (81.0-99.0); MEAN PLATELET VOLUME 8.5 FL (7.4-10.4); PLATELET COUNT 203 /CUMM (130-400); RED BLOOD CELL CT 2.61 /CUMM (4.20-5.40); WHITE BLOOD CELL COUNT 5.1 /CUMM (4.8-10.8)
--- NOTE | 2018-04-15 08:59 | PN- Housestaff ---
Valentina ALMAZAN,Fannie 04/15/18 0859: Subjective Follow-up For: Pain in the right upper quadrant possibly secondary to chronic cholecystitis Hypokalemia Hypomagnesemia Tele-Events Since Last Visit: No any overnight events Subjective: Patient is seen and examined at the bedside. She does not have any active complaints. She denies for using any [id number] preparation including herbal medications. Review of Systems Constitutional: Denies: no symptoms. Objective Last 24 Hrs of Vital Signs/I&O Vital Signs Date Time Temp Pulse Resp B/P B/P Pulse O2 O2 Flow FiO2 Mean Ox Delivery Rate 04/15 1443 98.4 77 18 110/70 94 Room Air 04/15 1431 Room Air 04/15 0658 97.8 81 20 118/68 96 Room Air 04/14 2207 98.7 80 20 114/66 97 Intake & Output 04/15 1600 04/15 0800 04/15 0000 Intake Total 680 120 320 Output Total Balance 680 120 320 Intake, IV 200 120 120 Intake, Oral 480 200 Number 2 Bowel Movements Patient 82.724 kg Weight Physical Exam General Appearance: Alert, Oriented X3, Cooperative, No Acute Distress Cardiovascular: Normal S1, Normal S2 Lungs: Clear to Auscultation, Normal Air Movement Current Medications: Current Medications Sig/Eliane Start time Last Medication Dose Route Stop Time Status Admin Acetaminophen 650 MG Q8P PRN 04/14 1000 AC PO Ampicillin Sodium/ 3,000 MG Q6H 04/14 1000 DC 04/15 Sulbactam Sodium IV 0401 Sodium Chloride 100 ML Heparin Sodium 5,000 UNIT Q8 04/14 1400 AC 04/15 (Porcine) SC 1337 Magnesium Chloride 64 MG BID 04/16 0900 AC PO Magnesium Sulfate 1 GM Q6 04/15 1215 AC 04/15 Dextrose/Water 100 ML IV 04/16 0058 1730 Magnesium Sulfate 1 GM ONCE ONE 04/15 0815 DC 04/15 Dextrose/Water 100 ML IV 04/15 1214 0806 Morphine Sulfate 2 MG Q8P PRN 04/14 1000 AC IV Omeprazole 40 MG BID 04/15 0900 AC 04/15 PO 0806 Ondansetron HCl 4 MG Q6P PRN 04/14 1300 AC IV Pantoprazole Sodium 40 MG DAILY 04/14 0925 DC 04/14 IV 0951 Potassium Chloride 20 MEQ BID 04/15 2100 AC PO Potassium Chloride 40 MEQ 1000 04/15 1000 DC 04/15 PO 04/15 1001 1055 Potassium Chloride 40 MEQ 0815 04/15 0815 DC 04/15 PO 04/15 0816 0807 Potassium Chloride 0 .STK-MED ONE 04/15 0807 DC PO Potassium Chloride 10 MEQ DAILY 04/14 1519 DC 04/14 PO 1547 Tramadol HCl 50 MG Q8P PRN 04/14 1000 AC PO Last 24 Hrs of Lab/Justo Results Last 24 Hrs of Labs/Mics: Laboratory Tests 04/15/18 1230: Anion Gap 10, Estimated GFR > 60, BUN/Creatinine Ratio 13.3, Magnesium 1.9, Vitamin B12 Pending, Folate Pending 04/15/18 0634: Anion Gap 8, Estimated GFR 57 L, BUN/Creatinine Ratio 12.0, Magnesium 1.4 L, Total Bilirubin 0.7, Direct Bilirubin 0.3, AST 46 H, ALT 102 H, Alkaline Phosphatase 40, Total Protein 5.8 L, Albumin 2.9 L, CBC w Diff NO MAN DIFF REQ , RBC 2.61 L, MCV 93.1, MCH 31.7 H, MCHC 34.1, RDW 15.0 H, MPV 8.5, Gran % 66.4, Lymphocytes % 21.4, Monocytes % 8.3, Eosinophils % 3.4, Basophils % 0.5, Absolute Granulocytes 3.4, Absolute Lymphocytes 1.1 L, Absolute Monocytes 0.4, Absolute Eosinophils 0.2, Absolute Basophils 0 Assessment/Plan Assessment: Patient is a 58-year-old female with past medical history of hypertension, H. pylori gastritis treated with the antibiotic, recent colonoscopy followed by polypectomy presented with chief complaints of right upper quadrant pain. Vital signs-Temperature 98.7, pulse 80, respiratory rate 20, blood pressure 148/ 66, respiratory 97% on room air. Blood workup-hemoglobin 8.3, hypokalemia 2.5, magnesium 1.4 Assessment and plan- * We supplemented potassium and magnesium as per requirement * Patient was also having anemia possibly GI bleed patient already had iron panel we will check for vitamin B12 folic acid and reticulocyte * Possible discharge tomorrow Problem List: 1. Hypokalemia 2. Hypotension 3. Lactic acidosis Pain Ratin Pain Location: right upper quadrant Pain Goal: Remain pain free Pain Plan: Avoid NSAIDs Tomorrow's Labs & Rationales: We will check BP, potassium, magnesium, reticulocyte, CBC for follow-up. Avelina ALMAZANMishelshasta 04/15/18 1109: Attending MD Review Statement Attending Statement Attending MD Statement: examined this patient, discuss w/resident/PA/PEANUT BLANCHER, agreed w/resident/PA/PEANUT BLANCHER, reviewed EMR data (avail) Attending Assessment/Plan: 58F PMH HTN, 20 pk yr smoking h/o, frequent NSAID use, history of colon polyps, without any FHx of colon CA or IBD, last colonoscopy 1.5 mm and 2 mm sessile colonic polyps, recent tx for H.pylori presenting with RUQ and epigastric pain, severe, radiates to back, no inciting event. She had vomited twice and feels nausea, no diarrhea. Temp was 96.8 on admission. Normal WBC, Hgb 9.6 down from 14 six weeks ago. Denies dark or bloody stools. Exam reveals tender RUQ. EKG shows sinus bradycardia. Feels much better today. Pain is completely resolved. Imaging shows a normal gall bladder and liver. Surgical clip is present from polypectomy in hepatic flexure. Potassium remains low at 2.5, Mg 1.4. CBC down to 8.3. 1. RUQ pain 2. Hypokalemia 3. Hypomagnesemia 4. Anemia Plan - Continue on telemetry for hypokalemia - Aggressively replete magnesium and potassium - Trend CBC, send iron studies, B12, reticulocyte count - Surgery and GI consults - Discontinue antibiotics - Cultures - Continue home medications - DVT PPx
--- NOTE | 2018-04-15 09:00 | Discharge Summary ---
See Addendum Visit Information Visit Dates Admission Date: 04/14/18 Discharge Date: 04/16/18 Hospital Course Course Attending Physician: Meggan Quan MD Primary Care Physician: Milady ALMAZAN,[facility] Course: Patient is a 58-year-old female past medical history of hypertension, chronic smoker([id number]), history of NSAID abuse, restless leg syndrome, recent history of H. pylori treated with course of antibiotic, history of GI bleed evaluated by endoscopy and colonoscopy, followed by removal of 2 mm sessile colonic polyp presented with chief complaints of acute onset of right upper quadrant pain followed by intake of, 25-30 tablets of ibuprofen followed by severe nausea and vomiting. She found to be hypotensive(blood pressure 73/50), at [facility] ED which improved after volume resuscitation to 108/74. We held her antihypertensive and admitted her to telemetry floor for the treatment of septic shock.We started antibiotic Unasyn. On workup EKG showed normal sinus rhythm, hemoglobin was 9.7, potassium was 2.8 and magnesium was 1.9, lactic acid 2.8, U tox was negative, serum alcohol level was 168, AST and ALT 64/131. We supplemented potassium/magnesium according to the requirement. CT scan of abdomen showed distended gallbladder without any evidence of gallstone. Follow-up abdominal ultrasound again showed distended gallbladder. Discussed with roll finisher who advised for HIDA scan. On HIDA scan there was no evidence of acute cholecystitis, gallstone, but there was poor gallbladder emptying and low gallbladder ejection fraction which suggested impaired gallbladder contractility due to chronic cholecystitis. Her follow-up blood counts were normal and blood cultures were negative. Her iron panel was also showing iron deficiency anemia(14, 452, 16.8) possibly secondary to GI bleed and poor nutrition. We discharged her on potassium/magnesium/iron pills. We advised her to have follow-up BP within a week of discharge and follow-up evaluation by PCP. We restarted her on tablet losartan 25 mg daily and continue to hold the amlodipine and hydrochlorothiazide. At the time of discharge she was complaining of occasional heaviness of the breast. We advised her to have outpatient evaluation from assistant to the director. Off note, we did abdominal x-ray to rule out any perforation. It did show evidence of some metallic foreign body in the right upper quadrant. With further discussion with roll finisher, it was told that it may be a possible clip after removal of sessile polyp. Allergies: Coded Allergies: NO KNOWN ALLERGIES (04/07/14) Disposition Summary Disposition Principal Diagnosis: Severe hypotension possibly secondary to poor oral intake, vomiting, diarrhea and use of antihypertensive on top of that Right upper quadrant pain possibly secondary to NSAID induced gastritis. Hypokalemia possibly secondary to vomiting and diarrhea Hypomagnesemia possibly secondary to diarrhea and poor oral intake Chronic cholecystitis Additional Diagnosis: Hypertension Chronic alcohol use disorder Chronic smoker History of sessile polyp in colon Discharge Disposition: home or self care Discharge Instructions General Discharge Information Code Status: Full Code Patient's Diet: As tolerated Patient's Activity: As tolerated Follow-Up Instructions/Appts: Advised to follow-up with PCP. Advised to have follow-up potassium and magnesium level within a week of discharge. Medications at Discharge Discharge Medications: Stop taking the following medications: Amlodipine Besylate (Amlodipine Besylate) 5 MG TABLET ORAL DAILY Qty = 90 Losartan/Hydrochlorothiazide (Losartan-Hctz 100-25 MG Tab) 100 MG-25 MG TABLET ORAL DAILY Qty = 90 Start taking the following new medications: Losartan Potassium (Cozaar) 25 MG TABLET 1 Tablet ORAL DAILY Qty = 30 No Refills Instructions: . Magnesium Chloride (Slow-Mag) 71.5 MG TABLET. 64 Milligram ORAL TWICE DAILY Qty = 10 No Refills Instructions: . Comments: Last Taken:04/16/18 Time:727 Potassium Chloride (Klor-Con 10) 10 MEQ TABLET.ER 1 Tablet ORAL DAILY Qty = 10 No Refills Instructions: 2 tab x 3 d 1tab x 3 d. Comments: Last Taken:04/16/18 Time:727 20 meQ given Omeprazole (Omeprazole) 20 MG CAPSULE. 40 Milligram ORAL TWICE DAILY Qty = 28 No Refills Instructions: . Comments: Last Taken:04/16/18 Time:727 Copies To: Milady ALMAZAN,Nacho Attending MD Review Statement Documenting Attending: Avelina ALMAZAN,Meggan
[2018-04-15 14:43] VITALS: BP 110/70
[2018-04-15] MEDS ORDERED: OMEPRAZOLE20 M2 PO (15:43)
--- NOTE | 2018-04-15 15:45 | Patient Discharge Instructions ---
Discharge Instructions General Discharge Information You were seen/treated for: Pain in the right but upper quadrant Special Instructions: Please follow-up with your PCP within a week of discharge Your potassium and magnesium level was low. The supplemented today and we advised you to follow-up with your PCP to repeat the blood potassium and magnesium level and supplement accordingly. Diet Recommended Diet: Heart Healthy Acute Coronary Syndrome Inclusion Criteria At DC or during hospital stay patient has or had the following: ACS DIAGNOSIS No Discharge Core Measures Meds if any: Prescribed or Continued at Discharge Meds if any: NOT Prescribed or Continued at Discharge Congestive Heart Failure Inclusion Criteria At DC or during hospital stay patient has or had the following: CHF DIAGNOSIS No Discharge Core Measures Meds if any: Prescribed or Continued at Discharge Meds if any: NOT Prescribed or Continued at Discharge Cerebrovascular accident Inclusion Criteria At DC or during hospital stay patient has or had the following: CVA/TIA Diagnosis No Discharge Core Measures Meds if any: Prescribed or Continued at Discharge Meds if any: NOT Prescribed or Continued at Discharge Venous thromboembolism Inclusion Criteria VTE Diagnosis No VTE Type NONE VTE Confirmed by (Test) NONE Discharge Core Measures - Per Current guidelines, there needs to be overlap - treatment for the first 5 days of Warfarin therapy. - If discharged on Warfarin prior to 5 days of - overlap therapy, the patient will need to be - assessed for post discharge needs including - *Post discharge parental anticoagulation - *Warfarin and/or parental anticoagulation education - *Follow up date to check INR post discharge At least 5 days overlap therapy as Inpatient No Meds if any: Prescribed or Continued at Discharge Warfarin No Note: Overlap Therapy is Warfarin and Anticoagulant Meds if any: NOT Prescribed or Continued at Discharge
[2018-04-15 22:06] VITALS: BP 126/84
[2018-04-16 06:40] VITALS: BP 134/64
[2018-04-16] MEDS ORDERED: KLOR-CON 1010 ME1 PO ×2 (07:43→11:03)
[2018-04-16] MEDS ORDERED: SLOW-MAG71.5 MG PO ×2 (07:45→11:03)
[2018-04-16 07:47] LABS: ABSOLUTE BASOPHIL COUNT 0 /CUMM (0.0-0.2); ABSOLUTE EOSINOPHIL COUNT 0.2 /CUMM (0.0-0.7); ABSOLUTE GRANULOCYTE CT 3.1 /CUMM (1.4-6.5); ABSOLUTE LYMPH COUNT 1.2 /CUMM (1.2-3.4); ABSOLUTE MONOCYTE COUNT 0.4 /CUMM (0.10-0.60); BASOPHIL % 0.9 % (0.0-2.0); EOSINOPHIL % 3.6 % (0-5); GRANULOCYTE % 63.8 % (42.2-75.2); HEMATOCRIT 24.3 % (37-47); MEAN CORPUSCULAR HGB 31.4 PG (27.0-31.0); MEAN CORPUSCULAR HGB CONC 33.6 G/DL (33.0-37.0); MEAN CORPUSCULAR VOLUME 93.5 FL (81.0-99.0); MEAN PLATELET VOLUME 9.6 FL (7.4-10.4); PLATELET COUNT 171 /CUMM (130-400); RBC DISTRIBUTION WIDTH 14.8 % (11.5-14.5); WHITE BLOOD CELL COUNT 4.9 /CUMM (4.8-10.8)
[2018-04-16] MEDS ORDERED: COZAAR25 M1 PO ×2 (10:20→11:03)
[2018-04-16] MEDS ORDERED: OMEPRAZOLE20 M2 PO (11:03)
--- NOTE | 2018-04-16 21:16 | PN- Housestaff ---
Subjective Follow-up For: RUQ pain - unknown etiology; resolved electrolyte imbalance RUSLAN Complaints: no complaints Subjective: Patient is seen examined at bed side. No active complains. Ready to be discharged. Counslled for follow ups. Review of Systems Constitutional: Denies: no symptoms. Objective Last 24 Hrs of Vital Signs/I&O Vital Signs Date Time Temp Pulse Resp B/P B/P Pulse O2 O2 Flow FiO2 Mean Ox Delivery Rate 04/16 0640 98.0 61 18 134/64 97 Room Air 04/15 2206 98.0 69 19 126/84 97 Intake & Output 04/16 1600 04/16 0800 04/16 0000 Intake Total 220 440 Output Total Balance 220 440 Intake, Oral 220 440 Patient 77.167 kg Weight Physical Exam General Appearance: Alert, Oriented X3, Cooperative Cardiovascular: Normal S1, Normal S2 Lungs: Clear to Auscultation, Normal Air Movement Assessment/Plan Assessment: Patient is a 58-year-old female with past medical history of hypertension, H. pylori gastritis treated with the antibiotic, recent colonoscopy followed by polypectomy presented with chief complaints of right upper quadrant pain. Vital signs-Temperature 98.7, pulse 80, respiratory rate 20, blood pressure 148/ 66, respiratory 97% on room air. Blood workup-hemoglobin 8.3, hypokalemia 3.4, magnesium 2.4 Assessment and plan- * We supplemented potassium and magnesium as per requirement * Patient was also having anemia possibly GI bleed patient already had iron panel vit b12 and Folic acid was in normal limit. * We discharged with follow up with PCP with in a week of discharge and f/u BEP/ Mag. * We started on iron pills. Problem List: 1. Hypotension 2. Hypokalemia 3. RUSLAN (iron deficiency anemia) Pain Ratin Pain Location: RUQ Pain Goal: Remain pain free Pain Plan: Avoid NSAIds Tomorrow's Labs & Rationales: n/a DVT/Prophylaxis: n/a
== END 2018-04-16 11:00 | DRG 683 ==
LOC: ERH 04:32 → 1NO 07:34 → ERHI 07:34 → ENRESERV 08:32 → ENTRNSPT 09:59 → EDTRNSPTSTS 10:16 → EDTRNSPT 10:16 → 1NO 10:34 → CMPTRNSPT 10:49 → 1NO 04-15 14:48 → ENPENDDIS 04-16 10:20 → 1NO 04-16 11:00
PROVIDERS: Internal Medicine Adolescent Medicine; Internal Medicine Endocrinology, Diabetes & Metabolism; Student in an Organized Health Care Education/Training Program
DX: N17.9 Acute kidney failure, unspecified (principal); D62 Acute posthemorrhagic anemia; E87.2 Acidosis; K29.70 Gastritis, unspecified, without bleeding; T39.315A Adverse effect of propionic acid derivatives, initial encounter; E87.6 Hypokalemia; E86.0 Dehydration; I10 Essential (primary) hypertension; G25.81 Restless legs syndrome; E83.42 Hypomagnesemia; D50.9 Iron deficiency anemia, unspecified; Z86.010 Personal history of colon polyps; F10.10 Alcohol abuse, uncomplicated; Z72.0 Tobacco use
CPT/HCPCS: 1NP; 84133; 84300; 36592; 74021; 74177; 78226; 80307; 81001; 82436; 82570; 87040; 87070; 93005; 93010; A9537; G0480; J1644; J2405; J2765